=== PATIENT | female | born 1975 | race Caucasian/White ===

== ENCOUNTER 2020-02-13 17:57 | Emergency (ER) | payer OTHER, SELFPAY ==
[2020-02-13 17:58] VITALS: BP 154/103; PULSE 80; RESP 16; TEMP 37.1; O2SAT 99; BMI 27.0
--- NOTE | 2020-02-13 19:01 | ED.DCSUM_ITS ---
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 Negative for: Weakness, Loss of Funtion Narrative: animal attendants and trainers, was bitten by a dog. Animal is a pet, not ill. thought it was being provoked. Tetanus Immunization: <5 years Past Medical History - Allergies and Home Meds Allergies/Adverse Reactions: Allergies No Known Allergies Allergy (Verified 02/13/20 17:57) Primary Care Physician: NOT,DEFINED [NON-STAFF] - Past Medical History: None Smoking Status: Never smoker Review of Systems Musculoskeletal: Reports: Extremity Pain Skin: Reports: Wounds Neurological: Reports: Parasthesia. Denies: Weakness Physical Exam Vital Signs/Narrative: Vital Signs Temp Pulse Resp BP Pulse Ox 02/13/20 17:58 98.8 F 80 16 154/103 H 99 General: Well nourished, Well developed, - - NAD Head: Normocephalic, Atraumatic Extremeties: No bony tenderness throughout the left hand. All FDP and FDS ten dons, including extensors, are all intact throughout every finger. Skin: Normal color, Trauma - 3 lacerations to left hand. To the ring finger, there is a 1 cm L-shaped laceration and a volar/ulnar deep 3 cm laceration. Tendons were not visible. To the index finger there is a 2 cm laceration across the dorsum, relatively superficial but still full-thickness. Neurological: Alert, Oriented x3, Cranial nerves II-XII grossly intact, Normal Strength, Normal Sensation, Normal Gait Psychological: Normal affect, Normal Mood Diagnostic/Tx/Re-eval - Medical Decision Making No concern for fracture or foreign body here. Lacerations were repaired, removal recommended 10-14 days, no need for tetanus, she was placed on Augmentin prophylaxis. All questions answered she is comfortable following up. Procedures - Lacerations left index finger Length: 2 cm Depth: Sub Q Shape: Linear Prep: Sterile Conditions, Chlorhexadine Laceration repair: Irrigated, Lidocaine, Local, Skin sutures Irrigated (ml): 20 Number of Sutures/[place]: 2 Suture Information: Ethilon, Simple, 4-0 left ring finger #1 Length: 1 cm Depth: Skin Shape: L-shaped Prep: Sterile Conditions, Chlorhexadine Laceration repair: Irrigated, Lidocaine, Local, Skin sutures Irrigated (ml): 20 Number of Sutures/[place]: 2 Suture Information: Ethilon, Simple, 4-0 left ring finger #2 Length: 3 cm Depth: Sub Q Shape: Stellate Prep: Sterile Conditions Laceration repair: Irrigated, Lidocaine, Local, Skin sutures Irrigated (ml): 40 Number of Sutures/[place]: 5 Suture Information: Ethilon, Simple, 4-0 ED Disposition - Plan for ED Patient: Disposition: Home or Assisted Living Diagnosis: Laceration of hand, left, Dog bite of left hand Instructions: ED BITE Dog, ED Laceration Hand Prescriptions: Amox/Clavulanate Tablet [Augmentin Tablet] 875 mg PO Q12H #14 tab Transmission Status: Pending to [facility]/pharmacy #[id number] Referrals: Doctor,Your [STAFF PHYSICIAN] - 10-14 Days suture removal
[2020-02-13] MEDS: Lidocaine/Epi/Tetracaine 50 ML 1 APPLIC TOPICAL (19:10)
[2020-02-13 21:21] VITALS: PULSE 74; RESP 15; O2SAT 98
[2020-02-13] MEDS: Amox/Clavulanate 875 MG Tablet PO (21:21)
== END 2020-02-13 21:22 | disposition home or self-care (01) ==
PROVIDERS: Emergency Provider Emergency Medicine
DX: S61.211A Laceration without foreign body of left index finger without damage to nail, initial encounter (principal); S61.215A Laceration without foreign body of left ring finger without damage to nail, initial encounter; W54.0XXA Bitten by dog, initial encounter; Y93.89 Activity, other specified; Y92.9 Unspecified place or not applicable
CPT/HCPCS: 12002; 99284

== ENCOUNTER 2024-01-11 11:34 | Outpatient (RCR) | payer SELFPAY ==
--- NOTE | 2024-01-15 08:20 | HP.PTEVAL_ITS ---
Patient's Visit Information Visit Information Visit Information: DNAIEL MORA is a 48 year old F referred to Physical Therapy by Self Referred with a diagnosis of B knee pain. Date of Evaluation: Physical Therapist: Jimmie James DPT Visit Plan Plan: DC chart. Pain R knee: Pain Intensity (Out of 10): 2 L knee: Pain Intensity (Out of 10): 2 Balance/Special Test Scores Lower Extremity Functional Score: 71 Anticipated Interventions Text: Thank you for the opportunity to evaluate your patient. For Medicare and Medicare HMO plans, please review the plan of care and approve it. It will need to be FAXED BACK to us at [phone] for Medicare purposes. For Medicare only, by signing this I certify the plan of care. Please let me know if there are questions or concerns regarding this plan of c are. Physician Signature: Date:
--- NOTE | 2024-01-15 08:25 | HP.PT.NRP ---
Patient Information Patient Information: DANIEL MORA was seen in my office for initial evaluation on . The following Plan of Care was established for this patient: Last Seen Last Seen: This patient was last seen in our office 01/11/24. Pertinent comments regarding their Physical therapy will appear below: Pt. was seen for self pay DN. I discussed that DN might not be the best intervention, but strengthening and bike ROM will be more effective. At this point I will be discontinuing this patient from physical therapy. I would be happy to see this patient again in the future if found appropriate by the physician. Thank you! Jimmie James, DPT Balance/Gait/Functional tests Balance/Special Test Scores Lower Extremity Functional Score: 71
== END 2024-01-11 19:00 | disposition home or self-care (01) ==
LOC: PT 11:34
DX: M25.561 Pain in right knee (principal); M25.562 Pain in left knee